=== PATIENT | female | born 1970 | race Hispanic/Latino ===

== ENCOUNTER → 2017-08-04 | Outpatient (CLI) | payer OTHER | END | disposition home or self-care (01) | LOC: RAH 12:32 | PROVIDERS: ATTEND Internal Medicine | DX: R10.2 Pelvic and perineal pain (principal) | CPT/HCPCS: 76856 ==

== ENCOUNTER → 2018-08-27 | Outpatient (CLI) | payer OTHER | END | disposition home or self-care (01) | LOC: RAH 13:30 | PROVIDERS: ATTEND Internal Medicine | DX: M19.271 Secondary osteoarthritis, right ankle and foot (principal); M77.31 Calcaneal spur, right foot; M79.89 Other specified soft tissue disorders | CPT/HCPCS: 73610 ==

== ENCOUNTER → 2024-06-06 | Outpatient (CLI) | payer BC ==
--- NOTE | 2024-06-06 10:35 | HMCIMG ---
DEXA BONE DENSITY SURVEY HISTORY: Menopause COMPARISON: None FINDINGS: Bone densitometry study was performed. Bone mineral density of the lumbar spine is 0.926 gram per centimeter square which corresponds to a T score of -1.1 and a Z score of 0.0. Bone mineral density of the left hip is 0.875 grams per centimeter square which corresponds to a T score of -0.6 and a Z score of 0.1. IMPRESSION: 1. Osteopenia of the lumbar spine and normal bone mineral density of left hip.
== END | disposition home or self-care (01) ==
LOC: RAH 08:16
PROVIDERS: ATTEND Internal Medicine
DX: M85.88 Other specified disorders of bone density and structure, other site (principal); N95.9 Unspecified menopausal and perimenopausal disorder
CPT/HCPCS: 77080